=== PATIENT | female | born 1965 | race Caucasian/White ===

== ENCOUNTER 2016-07-19 18:14 | Emergency (ER) | payer MEDICAID ==
[~2016-07-19 18:14] MED LIST: AMOXICILLIN PO; ASPIRIN; ASPIRIN PO; IBUPROFEN800 MG; NO MEDICATIONS; ORAJEL7 G1; PHENERGAN PO; VICODIN 5/1 TAB 5/50 PO; ZOCOR; ZOVIRAX PO; ZOVIRAX800 MG PO
[2016-08-10] MEDS ORDERED: ASPIRIN81 M2 PO (20:52)
== END 2016-07-19 19:09 | disposition home or self-care (01) ==
LOC: SED 18:14
DX: S61.217A Laceration without foreign body of left little finger without damage to nail, initial encounter (principal); I10 Essential (primary) hypertension; F17.210 Nicotine dependence, cigarettes, uncomplicated; Z88.1 Allergy status to other antibiotic agents; Z88.0 Allergy status to penicillin; W26.0XXA Contact with knife, initial encounter; Z88.5 Allergy status to narcotic agent; Y93.89 Activity, other specified; Y92.69 Other specified industrial and construction area as the place of occurrence of the external cause; Y99.0 Civilian activity done for income or pay
CPT/HCPCS: 12001; 99283

== ENCOUNTER 2016-08-10 21:03 | Emergency (ER) | payer MEDICAID ==
[~2016-08-10 21:03] MED LIST changes: +ASPIRIN81 M2 PO
== END 2016-08-10 21:22 | disposition home or self-care (01) ==
LOC: SED 21:03
DX: H66.92 Otitis media, unspecified, left ear (principal); H60.312 Diffuse otitis externa, left ear; F17.210 Nicotine dependence, cigarettes, uncomplicated; Z88.0 Allergy status to penicillin; Z88.5 Allergy status to narcotic agent; Z88.8 Allergy status to other drugs, medicaments and biological substances; Z79.899 Other long term (current) drug therapy
CPT/HCPCS: 99282